=== PATIENT | male | born 1995 | race African-American/Black ===

== ENCOUNTER 2018-02-27 19:39 | Emergency (ER) | payer SELFPAY ==
[~2018-02-27 19:39] MED LIST: CEPH500C3 PO; Z.0.NO CURRENT MEDS
== END 2018-02-27 21:31 | disposition left against medical advice (07) ==
LOC: NED 19:39
DX: Z53.21 Procedure and treatment not carried out due to patient leaving prior to being seen by health care provider (principal)
CPT/HCPCS: 99281